=== PATIENT | female | born 2000 | race Caucasian/White ===

== ENCOUNTER → 2019-08-07 | Outpatient (REF) | payer OTHER ==
[2019-08-07 17:46] LABS: BASO % 0.8 % (0.0-1.0); EOS % 0.6 % (0.0-3.0); HEMATOCRIT 38.9 % (36.0-47.0); HEMOGLOBIN 12.8 g/dl (12.0-15.5); LYMPH % 37.5 % (24.0-44.0); MEAN CORPUSCULAR HEMOGLOBIN 29.8 pg (27.0-33.0); MEAN CORPUSCULAR HGB CONC 32.9 g/dl (32.0-36.5); MEAN CORPUSCULAR VOLUME 90.5 fl (80.0-96.0); MONO # 0.4 10^3/uL (0.0-0.8); MONO % 7.3 % (0.0-5.0); NEUTROPHILS # 2.8 10^3/uL (1.5-8.5); NEUTROPHILS % 53.6 % (36.0-66.0); PLATELET COUNT, AUTOMATED 233 10^3/uL (150-450); WHITE BLOOD COUNT 5.2 10^3/uL (4.0-10.0)
[2019-08-07 17:50] LABS: ALBUMIN 4.3 GM/DL (3.2-5.2); ALT/SGPT 172 U/L (12-78); BILIRUBIN,TOTAL 0.5 MG/DL (0.2-1.0); BLOOD UREA NITROGEN 15 MG/DL (7-18); C REACTIVE PROTEIN QUANTITATIV < 0.30 MG/DL (0.00-0.30); CALCIUM LEVEL 9.2 MG/DL (8.5-10.1); CARBON DIOXIDE LEVEL 27 MEQ/L (21-32); CHLORIDE LEVEL 107 MEQ/L (98-107); CREATININE FOR GFR 0.75 MG/DL (0.55-1.30); GLOMERULAR FILTRATION RATE > 60.0 (>60); GLUCOSE, FASTING 81 MG/DL (70-100); SODIUM LEVEL 139 MEQ/L (136-145); TOTAL PROTEIN 7.4 GM/DL (6.4-8.2)
[2019-08-07 18:09] LABS: ERYTHROCYTE SEDIMENTATION RATE 15 mm/hr (0-20)
[2019-08-10 00:06] LABS: ANA (HEP2) Positive (.)
== END ==
LOC: M SFHCRHEU 12:12
PROVIDERS: ATTEND Internal Medicine
DX: M54.5 Low back pain (principal); Z15.89 Genetic susceptibility to other disease; R76.8 Other specified abnormal immunological findings in serum
CPT/HCPCS: 80053; 85025; 85652; 86038; 86140; G0463

== ENCOUNTER → 2019-08-21 | Outpatient (CLI) | payer OTHER ==
[~2019-08-21] MED LIST: PROHANCE 279.3MG/ML 15ML VIAL (A9576) As Ordered ONE
--- NOTE | 2019-08-21 18:29 | REPVR ---
PROCEDURE INFORMATION: Exam: MR Thoracic Spine Without and With Contrast Exam date and time: 08/21/2019 4:08 PM Age: 19 years old Clinical indication: Pain in thoracic spine; Without myelpathy or radiculopathy; Additional info: Lbp and hla b27+ TECHNIQUE: Imaging protocol: Multiplanar magnetic resonance images of the thoracic spine without and with intravenous contrast. Contrast material: PROHANCE; Contrast volume: 12 ml; Contrast route: IV; COMPARISON: No relevant prior studies available. FINDINGS: Vertebrae: Mild increased kyphosis of the thoracic spine. Marrow: The thoracic vertebral bodies are normal in height, without abnormal subluxation or acute marrow edema. Spinal cord: There is a focus of increased STIR signal intensity within the lower cervical spinal cord, not visualized on the T2 sequence and therefore suggestive of artifact. Evaluation of cervical spine is limited. No visualized thoracic spinal cord edema. No thoracic spinal cord compression. Discs/Spinal canal/Neural foramina: There is no posterior disc herniation or narrowing of the thecal sac at any thoracic level. No significant neural foraminal narrowing at any thoracic level. There is preservation of the thoracic intervertebral disc space height. No enhancing mass is identified within the thoracic spinal canal. Lungs: Evaluation of the lungs is limited on MRI. Soft tissues: No visualized paraspinal swelling. IMPRESSION: 1. Mild increased kyphosis of the thoracic spine. 2. There is no posterior disc herniation or narrowing of the thecal sac at any thoracic level. Electronically signed by: Ye Casey On 08/21/2019 18:29:46 PM
--- NOTE | 2019-08-21 18:49 | REPVR ---
PROCEDURE INFORMATION: Exam: MR Lumbar Spine Without and With Contrast. Exam date and time: 08/21/2019 4:08 PM Age: 19 years old Clinical indication: Low back pain; Additional info: Lbp and hla b27+ TECHNIQUE: Imaging protocol: Multiplanar magnetic resonance images of the lumbar spine without and with intravenous contrast. Contrast material: PROHANCE; Contrast volume: 12 ml; Contrast route: IV; COMPARISON: No relevant prior studies available. FINDINGS: Vertebrae: The lumbar vertebral bodies are normal in height, without acute marrow edema. Mild retrolisthesis of L5 on S1. Spinal cord: The distal end of the conus medullaris ends at L1, normal in position. No enhancing mass is identified within the lumbar spinal canal. Multilevel findings: Degenerative disc disease is noted at L1-L2 and L5-S1, with a decrease in the T2 signal intensity of the discs as well as disc bulge/osteophyte complexes. L1-L2: There is a left-sided disc protrusion causing a mild impression on the ventral thecal sac without significant overall narrowing. No significant neural foraminal narrowing bilaterally. L2-L3: There is no significant narrowing of the thecal sac or neural foramina. No posterior disc herniation. L3-L4: There is no significant narrowing of the thecal sac or neural foramina. No posterior disc herniation. L4-L5: There is no significant narrowing of the thecal sac or neural foramina. No posterior disc herniation. L5-S1: Mild bilateral facet arthropathy with hypertrophy of the ligamentum flavum. A central protrusion is identified, with mild spinal canal stenosis. The thecal sac tapers at this level. Mild right neural foraminal narrowing. No significant narrowing of the left neural foramen. Soft tissues: No significant paraspinal swelling. IMPRESSION: 1. Degenerative changes are noted at L1-L2 and L5-S1, as described above. 2. At L5-S1, a central protrusion is identified, with mild spinal canal stenosis. 3. There is a left-sided disc protrusion at L1-L2, causing a mild impression on the ventral thecal sac. 4. Mild right neural foraminal narrowing at L5-S1. 5. Mild retrolisthesis of L5 on S1. Electronically signed by: Ye Casey On 08/21/2019 18:48:54 PM
== END ==
LOC: M RAD 16:02
PROVIDERS: ATTEND Internal Medicine
DX: M54.5 Low back pain (principal); Z15.89 Genetic susceptibility to other disease; M40.204 Unspecified kyphosis, thoracic region
CPT/HCPCS: 72157; 72158; A9576

== ENCOUNTER → 2019-08-26 | Outpatient (CLI) | payer OTHER ==
--- NOTE | 2019-08-26 17:25 | REP ---
MRI pelvis/sacrum and SI joints without contrast: History: Low back pain. HLA-B 27 positive. Question sacroiliitis. Technique: Axial and oblique coronal and sagittal imaging planes are utilized. T1 and T2-weighted scans were obtained with and without fat saturation. MRI findings: Oblique coronal images taken parallel to the body of the sacrum show no evidence of SI joint fluid or inflammation. There is no evidence of ankylosis or erosive change involving the SI joints. Presacral soft tissues are unremarkable on axial and sagittal images. There is a small to moderate-sized central disc herniation at L5-S1 which contacts the ventral margin of the thecal sac. This is seen on recent MRI lumbar spine August 21, 2019. No abnormalities noted in the coccyx. There is no evidence of free fluid, mass or adenopathy within the pelvis. Normal uterus is observed and normal ovaries are seen bilaterally. The remainder of the visualized pelvis is unremarkable. Impression: Negative sacroiliac and pelvic imaging. Electronically Signed by Prasanth Tomlin MD 08/27/2019 08:31 A
== END ==
LOC: M RAD 14:36
PROVIDERS: ATTEND Internal Medicine
DX: M54.5 Low back pain (principal); Z15.89 Genetic susceptibility to other disease

== ENCOUNTER → 2019-09-03 | Outpatient (REF) | payer OTHER ==
[2019-09-03 13:04] LABS: ALBUMIN 4.1 GM/DL (3.2-5.2); ALT/SGPT 30 U/L (12-78); BILIRUBIN,TOTAL 0.4 MG/DL (0.2-1.0); BLOOD UREA NITROGEN 12 MG/DL (7-18); CALCIUM LEVEL 9.3 MG/DL (8.5-10.1); CARBON DIOXIDE LEVEL 28 MEQ/L (21-32); CHLORIDE LEVEL 109 MEQ/L (98-107); CREATININE FOR GFR 0.92 MG/DL (0.55-1.30); GLOMERULAR FILTRATION RATE > 60.0 (>60); GLUCOSE, FASTING 73 MG/DL (70-100); SODIUM LEVEL 140 MEQ/L (136-145); TOTAL PROTEIN 7.1 GM/DL (6.4-8.2)
[2019-09-03 13:23] LABS: HEPATITIS B SURFACE ANTIGEN NEGATIVE (NEGATIVE)
[2019-09-03 13:51] LABS: HEPATITIS C VIRUS ABY INDEX 0.1 INDEX (<0.8)
[2019-09-04 14:17] LABS: ANTI CENTROMERE ANTIBODY <0.2 AI (0.0-0.9); ANTI SCLERODERMA ANTIBODIES 0.8 AI (0.0-0.9); HEPATITIS B CORE ANTIBODY IGG Negative (Negative); RNP ANTIBODY < 0.2 AI (0.0-0.9); SMITHS ANTIBODY < 0.2 AI (0.0-0.9)
== END ==
LOC: M SFHCRHEU 08:48
PROVIDERS: ATTEND Internal Medicine
DX: M45.5 Ankylosing spondylitis of thoracolumbar region (principal); R76.8 Other specified abnormal immunological findings in serum; I73.89 Other specified peripheral vascular diseases; R79.89 Other specified abnormal findings of blood chemistry
CPT/HCPCS: 36415; 80053; 86235; 86255; 86480; 86704; 86803; 87340; G0463